=== PATIENT | male | born 1985 | race Caucasian/White ===

== ENCOUNTER 2018-11-12 14:21 | Emergency (ER) | payer OTHER ==
[2018-11-12 14:58] VITALS: BP 138/101
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
== END 2018-11-12 15:35 | disposition home or self-care (01) ==
LOC: UCEAST 14:21
DX: S46.011A Strain of muscle(s) and tendon(s) of the rotator cuff of right shoulder, initial encounter (principal); S63.601A Unspecified sprain of right thumb, initial encounter; Y04.8XXA Assault by other bodily force, initial encounter; Y92.9 Unspecified place or not applicable; F41.9 Anxiety disorder, unspecified
CPT/HCPCS: 99201; G0463

== ENCOUNTER 2018-11-19 16:36 | Emergency (ER) | payer OTHER ==
[2018-11-19 16:57] VITALS: BP 136/52
--- NOTE | 2018-11-19 17:58 | UC ---
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 R shoulder pain started from about a week ago until now. Feels it is not improving and concerned for a tear. Denies weakness but is worried that if this is not improving he won't be able to do his work properly/safely. - History of Current Complaint Chief Complaint: UCUpperExtremity Stated Complaint: RECHECK SHOULDER INJURY Time Seen by Provider: 11/19/18 17:36 Hx Obtained From: Patient Pain Intensity: 4 Pain Scale Used: 0-10 Numeric Character: Sharp Aggravating Factor(s): Movement, Internal/External Rotation Alleviating Factor(s): Nothing - Allergies/Home Medications Allergies/Adverse Reactions: Allergies Allergy/AdvReac Type Severity Reaction Status Date / Time No Known Allergies Allergy Verified 11/19/18 16:57 PMH/Surg Hx/FS Hx/Imm Hx - Additional Past Medical History Additional PMH: no chronic issues Previously Healthy: Yes - Surgical History Surgical History: Yes Surgery Procedure, Year, and Place: RIGHT WRIST REDUCTION S/P FX - Family History Known Family History: Positive: Non-Contributory - Social History Alcohol Use: Occasionally Substance Use Type: None Smoking Status (MU): Never Smoked Tobacco Review of Systems All Other Systems Reviewed And Are Negative: Yes Constitutional: Negative: Fever Skin: Negative: Rash, Bruising Musculoskeletal: Positive: Arthralgia - R shoulder pain. Negative: Decreased ROM, Edema, Myalgia Neurological: Negative: Paresthesia, Numbness Physical Exam Triage Information Reviewed: Yes Appearance: Well-Appearing Vital Signs: Initial Vital Signs Temp 98.1 F 11/19/18 16:51 Pulse 63 11/19/18 16:51 Resp 20 11/19/18 16:51 BP 136/52 11/19/18 16:51 Pulse Ox 99 11/19/18 16:51 Vital Signs Reviewed: Yes Respiratory Exam: Normal Cardiovascular Exam: Normal Musculoskeletal: Positive: Strength Intact - R shoulder/UE, ROM Intact - R shoulder, No Edema, Other: - neg lift off test R, pain at capsule w/ point tenderness, pain w/ internal rotation/resistance. Neurological: Positive: Muscle Tone Normal, Other: - able to move R arm normally and no changes to feeling or sudden onset tingling/numbness Upper Extremity Course/Dx - Course Course Of Treatment: R shoulder pain likely bursitis/capsule injury from the event at work. He may need occupational health for more specific evaluation but for pain can use nsaids, rest. No neuro deficits as strength was good and no tingling/numbness. Plan is to have him see [facility] as he should go to PT and evaluate for progress. - Differential Dx/Diagnosis Differential Diagnosis/HQI/PQRI: Strain, Sprain, Other Provider Diagnosis: Right shoulder pain Discharge - Sign-Out/Discharge Documenting (check all that apply): Patient Departure All imaging exams completed and their final reports reviewed: No Studies - Discharge Plan Condition: Good Disposition: HOME Patient Education Materials: Tendinitis (ED) Forms: *Work Release Referrals: Brando Zepeda MD [Medical Doctor] - 2 Days Additional Instructions: Please consider seeing Dr. Brando Zepeda for your workman's comp issue. They may consider ordering an MRI. - Billing Disposition and Condition Condition: GOOD Disposition: Home
== END 2018-11-19 18:05 | disposition home or self-care (01) ==
LOC: UCEAST 16:36
DX: M25.511 Pain in right shoulder (principal)
CPT/HCPCS: 99211; G0463